=== PATIENT | male | born 2000 | race Caucasian/White ===

== ENCOUNTER 2022-05-23 19:25 | Emergency (ER) | payer SELFPAY ==
[2022-05-23 20:59] VITALS: TEMP 98.6
--- NOTE | 2022-05-23 21:36 | XR ---
Result: Clinical History: Pain. Comparison: None available. Technique: 3 views of the left shoulder. Findings: The bone mineralization is appropriate for age. There is superior elevation of the distal clavicle relative to the acromion. No displaced fracture se en. Otherwise no dislocation of the glenohumeral joint. Impression: Findings consistent with type II [place] classification acromioclavicular injury. No displaced fracture seen.
--- NOTE | 2022-05-23 21:52 | ED ---
Upper Extremity HPI - General Chief Complaint: Extremity Injury, Upper Stated Complaint: L shoulder injury Time Seen by Provider: 05/23/22 21:28 Source: patient Mode of arrival: ambulatory Limitations: no limitations - History of Present Illness Initial Comments: Patient is a 22-year-old male who presents with left shoulder pain. Patient collided with someone during a softball game today. He did not lose consciousness or fall. Patient endorses pain in the front of his left shoulder. Took Motrin with some relief. Denies numbness and tingling. Denies other injury. - Related Data Previous Rx's Medication Instructions Recorded Ibuprofen [Motrin] 800 mg PO Q6HR PRN #28 tab 05/23/22 Allergies Allergy/AdvReac Type Severity Reaction Status Date / Time No Known Allergies Allergy Verified 05/23/22 20:59 Review of Systems ROS Statement: Those systems with pertinent positive or pertinent negative responses have been documented in the HPI. ROS Other: All systems not noted in ROS Statement are negative. Past Medical History Past Medical History: No Reported History History of Any Multi-Drug Resistant Organisms: None Reported Additional Past Surgical History / Comment(s): right clavicle surgery Past Psychological History: No Psychological Hx Reported Smoking Status: Never smoker Past Alcohol Use History: None Reported Past Drug Use History: None Reported General Exam Limitations: no limitations General appearance: alert, in no apparent distress Head exam: Present: atraumatic, normocephalic, normal inspection Respiratory exam: Present: normal lung sounds bilaterally. Absent: respiratory distress, wheezes, rales, rhonchi, stridor Cardiovascular Exam: Present: regular rate, normal rhythm, normal heart sounds. Absent: systolic murmur, diastolic murmur, rubs, gallop, clicks Left Shoulder Exam: Present: full ROM, tenderness over AC joint Upper Arm exam: Present: normal inspection, full ROM. Absent: tenderness, swelling Course Vital Signs 05/23/22 05/23/22 20:55 22:35 Temperature 98.6 F Pulse Rate 56 L 68 Respiratory 20 16 Rate Blood Pressure 136/81 130/80 O2 Sat by Pulse 99 98 Oximetry Medical Decision Making - Medical Decision Making This is a 22-year-old who presents with left shoulder pain. There is tenderness at the AC joint. Full range of motion. Neurovascularly intact. Patient placed in sling. He will be discharged with orthopedic referral. Dr. Patel is my attending. Disposition Clinical Impression: Acromioclavicular joint injury Disposition: HOME SELF-CARE Condition: Good Instructions (If sedation given, give patient instructions): Acromioclavicular Separation (ED) Additional Instructions: Take medication as directed. Ice the injury as much as possible for the next 48 hours. Please keep sling on until orthopedic evaluation. If tolerable perform range of motion exercises by lightly stretching. Follow-up with case resolution specialist in 1-2 days. Return to emergency department experience new, concerning, or worsening symptoms. Prescriptions: Ibuprofen [Motrin] 800 mg PO Q6HR PRN #28 tab PRN Reason: Pain Is patient prescribed a controlled substance at d/c from ED?: No Referrals: None,Stated [Primary Care Provider] - 1-2 days Juana William NPC [Nurse Practitioner] - 1-2 days Time of Disposition: 21:52
[2022-05-23 22:36] VITALS: BP 130/80; PULSE 68; RESP 16
== END 2022-05-23 22:36 | disposition home or self-care (01) ==
LOC: EC 19:25
DX: S43.51XA Sprain of right acromioclavicular joint, initial encounter (principal); W21.07XA Struck by softball, initial encounter; Y93.64 Activity, baseball
CPT/HCPCS: 99283